=== PATIENT | female | born 1970 | race Two or more races ===

== ENCOUNTER 2019-04-30 08:29 | Emergency (ER) | payer MEDICAID ==
[2019-04-30] MEDS ORDERED: Ketorolac 30 MG/ML SDV IM ONE (09:15)
[2019-04-30] MEDS ORDERED: Ketorolac 30 MG/ML SDV IVPUSH ONE (09:22)
[2019-04-30 09:58] VITALS: BP 143/101; PULSE 96
--- NOTE | 2019-04-30 10:01 | EDM.PDOC ---
Scribed by Promise Weller 04/30/19 0904 for Miya Jones NP ED HPI GENERAL MEDICAL PROBLEM - General Chief Complaint: Back Pain or Injury Stated Complaint: BACK PAIN Time Seen by Provider: 04/30/19 09:05 Source of Information: Reports: Patient, RN, RN Notes Reviewed History Limitations: Reports: No Limitations - History of Present Illness INITIAL COMMENTS - FREE TEXT/NARRATIVE: Patient presents to ER with 2 days of low back pain central vilma lower pain and numbness > on right with new onset of bladder incontinence. Pain is constant low back. No known injury. She has never had numbness in her lower extremities till now. Her last menstrual period was 04/16/19. Today is the first day with bladder incontinence. She has numbness to knee right greater than left. No nausea. Her right leg is weak. She is on pain management programs wit Dr. Campos. Her pain is usually controlled with heat, Flexeril, Ibuprofen, Hydrocodone, Naprosyn and Gabapentin; and she receives occasional ERIN's. She has had no abdominal pain or dysuria. Onset Date: 04/28/19 Duration: Getting Worse Location: Reports: Back (low) Quality: Reports: Ache Severity: Severe Improves with: Reports: None Worsens with: Reports: None Associated Symptoms: Reports: No Other Symptoms, Other (Lower extremity weakness , numbness, and pain) - Related Data Allergies Allergy/AdvReac Type Severity Reaction Status Date / Time No Known Allergies Allergy Verified 04/30/19 08:45 Home Meds: Home Meds Gabapentin [Neurontin] 300 mg PO DAILY 01/08/19 [History] Hydrocodone/Acetaminophen [Hydrocodon-Acetaminophn 10-325] 1 - 2 tab PO Q6H PRN 01/08/19 [History] Lisinopril/Hydrochlorothiazide [Lisinopril-Hctz 10-12.5 mg Tab] 2 tab PO DAILY 01/08/19 [History] Past Medical History Cardiovascular History: Reports: Hypertension Musculoskeletal History: Reports: Back Pain, Chronic - Past Surgical History Neurological Surgical History: Reports: Other (See Below) (back injections) Social & Family History - Caffeine Use Caffeine Use: Reports: Tea ED ROS GENERAL - Review of Systems Review Of Systems: ROS reveals no pertinent complaints other than HPI. Musculoskeletal: Reports: Other (Weakness and pain vilma legs > on the left) Neurological: Reports: Numbness ED EXAM,LOWER BACK PAIN/INJURY - Physical Exam Exam: See Below Exam Limited By: No Limitations General Appearance: Alert, WD/WN, No Apparent Distress Eye Exam: Bilateral Eye: EOMI, Normal Inspection, PERRL Ears: Normal External Exam, Normal Canal, Hearing Grossly Normal, Normal TMs Nose: Normal Inspection, Normal Mucosa, No Blood Throat/Mouth: Normal Inspection, Normal Lips, Normal Teeth, Normal Gums, Normal Oropharynx, Normal Voice, No Airway Compromise Head: Atraumatic, Normocephalic Neck: Normal Inspection, Supple, Non-Tender, Full Range of Motion Respiratory/Chest: No Respiratory Distress Cardiovascular: Normal Peripheral Pulses, Regular Rate, Rhythm, No Edema, No Gallop, No JVD, No Murmur, No Rub GI/Abdominal: Normal Bowel Sounds, Soft, Non-Tender, No Organomegaly, No Distention, No Abnormal Bruit, No Mass (Female) Exam: Deferred Rectal (Female) Exam: Deferred Back Exam: Other (tender to palpate over the low lumbar spine and across vilma Lumbar region. Also some muscle spasm and pain the in lower throacic paraspinous muscles as well. ) Extremities: Other (strength extremities 4/5 lower extremity psoas muscle bilateral. Knee and ankle strength 5/5. Sensation intact to light touch. ) Neurological: Other (DTR decreased right knee and ankle. Left is normal. ) Psychiatric: Normal Affect Skin Exam: Warm, Dry, Intact, Normal Color, No Rash Course - Vital Signs Last Recorded V/S: Last Vital Signs Temp 36.3 C 04/30/19 08:40 Pulse 98 04/30/19 09:15 Resp 20 04/30/19 09:15 BP 164/108 H 04/30/19 09:15 Pulse Ox 97 04/30/19 09:15 - Orders/Labs/Meds Labs: Laboratory Tests 04/30/19 Range/Units 08:30 Urine Color Yellow (YELLOW) Urine Appearance Clear (CLEAR) Urine pH 5.5 (5.0-9.0) Ur Specific [place] 1.020 (1.005-1.030) Urine Protein Negative (NEGATIVE) Urine Glucose (UA) Negative (NEGATIVE) Urine Ketones Negative (NEGATIVE) Urine Occult Blood Moderate H (NEGATIVE) Urine Nitrite Negative (NEGATIVE) Urine Bilirubin Negative (NEGATIVE) Urine Urobilinogen 0.2 (0.2-1.0) mg/dL Ur Leukocyte Esterase Trace H (NEGATIVE) Urine RBC 5-10 H /HPF Urine WBC 0-5 (0-5/HPF) /HPF Ur Epithelial Cells Moderate H (NOT SEEN) /HPF Urine Bacteria Few (0-FEW/HPF) /HPF Meds: Medications Discontinued Medications Generic Name Dose Route Start Last Admin Trade Name Quentinq PRN Reason Stop Dose Admin Ketorolac Tromethamine 30 mg 04/30/19 09:15 04/30/19 09:27 Toradol IM 04/30/19 09:16 Not Given ONETIME ONE Ketorolac Tromethamine 30 mg 04/30/19 09:22 04/30/19 09:27 Toradol IVPUSH 04/30/19 09:23 30 mg ONETIME ONE Administration - Re-Assessments/Exams Free Text/Narrative Re-Assessment/Exam: 04/30/19 09:53 Given toradol for pain. 04/30/19 09:58 Due to the new onset of urine incontinence; will need MRI. Transfer to . Hematuria; but only 0-5 WBC I dont suspect infection. Possible stone; but less likely with no abdominal pain and pain is constant in nature. Nether the less will need her incontinence figured for possible Cauda Equina Syndrome. Departure - Departure Time of Disposition: 09:54 Disposition: Left Without Being Seen 07 Condition: Fair Clinical Impression: Right leg weakness, Right leg numbness Hematuria Qualifiers: Hematuria type: unspecified type Qualified Code(s): R31.9 - Hematuria, unspecified Hypertension Qualifiers: Hypertension type: essential hypertension Qualified Code(s): I10 - Essential ( primary) hypertension - Discharge Information Forms: ED Department Discharge, Interfacility Transfer EMTALA I have read and agree with the documentation that has been completed regarding this visit. By signing this record, I attest that the documentation was completed in my physical presence and is an accurate record of the encounter.
== END 2019-04-30 09:58 | disposition left against medical advice (07) ==
LOC: DL.ED 08:29
DX: M62.81 Muscle weakness (generalized) (principal); R20.0 Anesthesia of skin; I10 Essential (primary) hypertension; R31.9 Hematuria, unspecified; Z79.899 Other long term (current) drug therapy
CPT/HCPCS: 81001; 96374; 99284; J1885

== ENCOUNTER 2024-05-29 21:43 | Emergency (ER) | payer MEDICAID ==
[2024-05-29] MEDS: Acetaminophen 325 MG Tab PO ONE (23:13)
[2024-05-30] MEDS: Ketorolac 30 MG/ML SDV IM ONE (01:21)
[2024-05-30 01:43] VITALS: BP 168/115; PULSE 86
== END 2024-05-30 01:33 | disposition home or self-care (01) ==
LOC: DL.ED 21:43
DX: M54.50 Low back pain, unspecified (principal); I10 Essential (primary) hypertension; Z79.899 Other long term (current) drug therapy
CPT/HCPCS: 70450; 72110; 96372; 99284; A9270; J1885; 99282